=== PATIENT | male | born 1925 | race Caucasian/White ===

== ENCOUNTER 2017-01-04 16:13 | Emergency (ER) | payer MEDICARE, OTHER ==
[~2017-01-04] VITALS: Ht 162.6 cm; Wt 71.6 kg
[~2017-01-04 16:13] MED LIST: ACET-62 PO; BETA1TAB20 PO; CALC1TAB87 PO; DABI75CA3 PO; DRON400T2 PO; FINA5TAB42 PO; ISOS30TA46 PO; MAGN400T25 PO; MELA5TAB14 PO; MULT-795 PO; RANI-45 PO; SIMV10TA6 PO; TERA5CAP PO
[2017-01-04 16:15] VITALS: Ht 162.6 cm; Wt 71.6 kg
--- OUTSIDE RECORDS SUMMARY | 2017-01-04 16:17 | XMS REPORT | Continuity of Care Document ---
Author Author [facility] Organization [facility] Address Unknown Phone Unavailable Support Name Relationship Address Phone HAILYROGERIO YI Caregiver [address] [place] [address] CATALINO CASTELLANOS MD Caregiver [address] [place] [phone] ALLISON MCCORD MD Caregiver [address] [place] [phone] TWIN LONDON MD Caregiver [address] [place] [phone] SOTERO BROWN Next Of Kin [address] [place] [address] Insurance Providers Payer Name Policy Number Subscriber Name Relationship Medicare [id number] Meliton Brown Self Care Rr Medicare Supplement [id number] Meliton Brown Self Advance Directives Directive Response Recorded Date/Time Advanced Directives Type Unable to Obtain 07/04/14 1:23pm Ordered Resuscitation Status Full Code, unverified 07/04/14 12:49pm Resuscitation Documents on File No 07/04/14 2:19pm Chief Complaint and Reason for Visit Chief Complaint FEVER,SEPSIS,DEHYDRATION Reason for Visit Acute febrile illness Sepsis History of bacteremia History of dental abscess Poor dentition Dehydration Encephalopathy in sepsis Afib Fever Leucocytosis Dehydration Cellulitis Problems Medical Problems Problem Onset Date Status RAPID HEART RATE-RESOLVED Unknown Active Dizziness Unknown Active Fall Unknown Active Elbow contusion Unknown Active Laceration of right hand Unknown Active Fall Unknown Active Atypical chest pain Unknown Active Acute febrile illness Unknown Active Sepsis Unknown Active History of bacteremia Unknown Resolved History of dental abscess Unknown Active Poor dentition Unknown Active Dehydration Unknown Resolved Encephalopathy in sepsis Unknown Active Afib Unknown Active Fever Unknown Active Leucocytosis Unknown Active Dehydration Unknown Active Cellulitis Unknown Active Medications Medication Dose Route Sig Days/Qty Instructions Order Date Discontinued Date Status Nadolol 1 Tab PO DAILY 11/04/08 02/15/10 Discontinued Terazosin Hcl 1 Tab PO DAILY 02/15/10 Active Potassium Chloride 2 Tab PO TWICE A DAY 02/15/10 09/11/11 Discontinued Fluvastatin Sodium 1 Tab PO DAILY 11/04/08 02/15/10 Discontinued Ranitidine Hcl 150 Mg PO TWICE A DAY 02/15/10 Active Aspirin 81 Mg PO DAILY 04/10/09 02/15/10 Discontinued [Centrum Silver] 1 PO DAILY 02/15/10 03/31/11 Discontinued Pantoprazole Sodium DAILY 02/15/10 03/31/11 Discontinued Hydrochlorothiazide 25 Mg PO DAILY 02/15/10 01/21/12 Discontinued Fluvastatin Sodium 80 Mg PO DAILY 02/15/10 03/31/11 Discontinued Finasteride 5 Mg PO DAILY 02/15/10 05/18/11 Discontinued Simvastatin 10 Mg PO BEDTIME 03/31/11 Active Lisinopril 10 Mg PO DAILY 05/18/11 Active Warfarin Sodium 5 Mg PO DAILY 05/18/11 09/11/11 Discontinued Diltiazem Hcl 180 Mg PO DAILY 05/18/11 Active Potassium Chloride 50 Meq PO DAILY 09/11/11 01/21/12 Discontinued Warfarin Sodium 2.5 Mg PO M, W, F 09/11/11 09/11/11 Discontinued [pradaxa] 75 Mg TWICE A DAY 09/11/11 07/08/14 Discontinued Aspirin 81 Mg PO DAILY 01/21/12 05/09/13 Discontinued Multivitamins W-Minerals/Lut 1 Tab PO DAILY 01/21/12 Active Isosorbide Mononitrate 30 Mg PO DAILY 05/09/13 Active Magnesium Oxide 400 Mg PO DAILY 05/09/13 Active Calcium Carbonate/Vitamin D3 1 Udtab PO DAILY 05/09/13 Active Dabigatran Etexilate Mesylate 1 Cap PO TAKE WITH FULL GLASS OF WATER. 07/04/14 Active Saw [place] Fruit TWICE A DAY 07/04/14 Active Amoxicillin/Potassium Clav 1 Tab PO TWICE A DAY 7 Days 07/08/14 Active Social History Social History Problem Response Recorded Date/Time Smoking Status Unknown if ever smoked 01/13/2014 1:00pm Hx Substance Use No 07/04/2014 1:25pm Hx Alcohol Use No 07/04/2014 1:25pm Has the pt used tobacco in the last 12 months No 07/04/2014 2:17pm Query Response Start Date Stop Date Smoking Status Former smoker Hospital Discharge Instructions Instructions: Care Instructions: Reason for Hospitalization: fever I was in the hospital because (patient own words): I AM SICK Discharge Diet: as tolerated Discharge Activity: It is OK to perform your activities of daily living, but you should stay off your leg until the redness is gone. Follow Up Appointments: Please make an appt with Dr Mccord in one week Patient Instructions: should your symptoms return you could contact Dr Mccord through the office or return to the ED for emergent evaluation Condition at time of discharge: Good N/A Notify Physician If: As above. Condition at time of discharge: Good decline Condition at time of discharge: Good OR RETURN TO ED FOR LIGHTHEADEDNESS, WEAKNESS, AND MUSCLE/JOINT ACHES SHOULD OCCUR. Condition at time of discharge: Good Plan of Care Discharge Date 07/08/14 5:17pm Disposition 01 DISCHARGED HOME, SELF-CARE Prescriptions See Medications Section Functional Status Query Response Date Recorded Physical Hygiene Self July 08, 2014 4:16pm Disabilities Hearing July 08, 2014 4:16pm Devices Used None July 08, 2014 4:16pm Dressing Self July 08, 2014 4:16pm Ambulation Self July 08, 2014 4:16pm Diet Self July 08, 2014 4:16pm Mental Status Alert Oriented July 08, 2014 4:16pm Disabilities Hearing July 08, 2014 4:16pm Devices Used None July 08, 2014 4:16pm Physical Hygiene Self July 08, 2014 4:16pm Dressing Self July 08, 2014 4:16pm Ambulation Self July 08, 2014 4:16pm Diet Self July 08, 2014 4:16pm Allergies, Adverse Reactions, Alerts Allergen Type Severity Reaction Status Last Updated No Known Drug Allergies Allergy Unknown Active 07/04/14 Immunizations Name Given Type Hx Influenza Vaccination No Historical Hx Pneumococcal Vaccination Y found in EMR that pt. had vaccine in 2009 Historical Hx Influenza Vaccination No Historical Hx Tetanus Diptheria Y 2010 OR 2011 Historical Vital Signs Acute Vital Signs Vital Response Date/Time Temperature (Fahrenheit) 95.7 deg F (96.8 - 99.1) Temperature (Calculated Celsius) 35.98327 degrees C (36.0 - 37.3) Temperature Source Oral Pulse Rate (adult) 63 bpm (60 - 100) Respiratory Rate 16 breaths/min (10 - 20) O2 Sat by Pulse Oximetry 96 % (90 - 100) Oxygen Delivery Method Room Air Blood Pressure 146/71 mm Hg Blood Pressure Source Automatic Cuff Height 5 ft 6 in Weight 167 lb Body Mass Index 27.0 kg/m^2 Results Test Source Date Result Interp. Ref. Range Comments Activated Partial Thromboplast Time July 18, 2013 12:13pm 53.9 SEC H 24-36 Alanine Aminotransferase (ALT/SGPT) July 04, 2014 10:52am 28 U/L N 21 -72 Albumin July 04, 2014 10:52am 4.0 G/DL N 3.5-5.0 Albumin/Globulin Ratio July 04, 2014 10:52am 1.2 RATIO N 1.1-2.2 Alkaline Phosphatase July 04, 2014 10:52am 61 U/L N 38-126 Amylase Level February 15, 2010 3:00pm 63 U/L N 30-110 Anion Gap July 08, 2014 5:08am 7 MEQ/L N 5-15 Anti-Mitochondrial Antibody February 15, 2010 3:00pm Ref lab rpt scanned - --- 02/20/10 0911 ---ANTIMIT previously reported as: SENT OUT Aspartate Amino Transf (AST/SGOT) July 04, 2014 10:52am 31 U/L N 17- 59 B-Type Natriuretic Peptide May 18, 2011 12:35am 42 PG/ML N 15-100 BUN/Creatinine Ratio July 08, 2014 5:08am 11 RATIO N 6-26 Band Neutrophils # July 04, 2014 10:51am 3.1 T/MM3 - Band Neutrophils % July 04, 2014 10:51am 13.0 % H 0-6 Basophils # (Auto) July 08, 2014 5:08am 0.1 T/MM3 N 0-0.2 Basophils # (Manual) February 17, 2010 4:44am 0.0 T/MM3 N 0-0.2 Basophils % (Manual) February 17, 2010 4:44am 0.0 % N 0-2 Basophils (%) (Auto) July 08, 2014 5:08am 0.6 % N 0-2 Blood Urea Nitrogen July 08, 2014 5:08am 12.0 MG/DL N 9-20 Calcium Level July 08, 2014 5:08am 8.8 MG/DL N 8.4-10.2 Calculated Osmolality July 08, 2014 5:08am 264 MOSM/KG N 261-280 Carbon Dioxide Level July 08, 2014 5:08am 27 MEQ/L N 22-30 Ceruloplasmin February 15, 2010 3:00pm Ref lab rpt scanned - --- 0911 ---CERU previously reported as: SENT OUT Chemistry Specimen Hemolysis July 08, 2014 5:08am < 15 0-25 0-25: No Hemolysis.26-70: Slight Hemolysis - can falsely elevate K and Urine Protein. 71-285: Moderate Hemolysis - can falsely elevate K, Troponin I, CA 19-9, PTH, CSF GLucose, and Urine Protein, and can falsely decrease Phenytoin. 286-999: Gross Hemolysis - can falsely elevate K, Troponin I, CA 19-9, PTH, CSF Glucose, and Urine Protine, and can falsely decrease Phenytoin. Recommend specimen recollection. Chloride Level July 08, 2014 5:08am 103 MEQ/L N 98-107 Cholesterol Level February 16, 2010 5:00am 123 MG/DL L 132-199 Cholesterol/HDL Ratio February 16, 2010 5:00am 3.2 RATIO N 0-5.0 Conjugated Bilirubin March 31, 2011 5:15am 0.00 MG/DL N 0.00-0.30 Creatine Kinase MB May 18, 2011 12:35am 0.4 NG/ML N 0-3.4 Creatinine July 08, 2014 5:08am 1.1 MG/DL N 0.8-1.5 Eosinophils # (Auto) July 08, 2014 5:08am 0.3 T/MM3 N 0-0.5 Eosinophils # (Manual) February 17, 2010 4:44am 0.0 T/MM3 N 0-0.5 Eosinophils % (Manual) February 17, 2010 4:44am 0.0 % N 0-4 Eosinophils (%) (Auto) July 08, 2014 5:08am 3.5 % N 0-4 Ferritin February 15, 2010 3:00pm 298 NG/ML N 18-464 Free Thyroxine March 31, 2011 5:15am 1.31 NG/DL N 0.78-2.19 Globulin July 04, 2014 10:52am 3.4 G/DL N 2.4-3.6 Glomerular Filtration Rate Calc July 08, 2014 5:08am 63 - Glucometer August 20, 2013 10:24am 151 mg/dL H 75-110 Glucose Level July 08, 2014 5:08am 99 MG/DL N 75-110 HDL Cholesterol Direct April 09, 2012 11:53am 51 MG/DL N 40-60 Hematocrit July 08, 2014 5:08am 32.8 % L 41-53 Hemoglobin July 08, 2014 5:08am 10.7 GM/DL L 13.5-17.5 Hepatitis A IgM Antibody February 15, 2010 3:00pm Negative - Hepatitis B Core IgM Antibody February 15, 2010 3:00pm Negative - Hepatitis B Surface Antigen February 15, 2010 3:00pm Negative - Hepatitis C Antibody February 15, 2010 3:00pm Negative - Icterus Index July 08, 2014 5:08am < 2 0-7 Immature Granulocyte # (Auto) July 08, 2014 5:08am 0.05 T/MM3 H 0.00- 0.03 Immature Granulocyte % (Auto) July 08, 2014 5:08am 0.6 % H 0.0-0.5 Influenza Type A Antigen July 04, 2014 10:00am Negative - Negative for Flu A protein antigen. Assay sensitivity is90%. Influenza Type B Antigen July 04, 2014 10:00am Negative - Negative for Flu B protein antigen. Assay sensitivity is90%. LDL Cholesterol Direct April 09, 2012 11:53am 34.56 MG/DL L 100-129 LDL Cholesterol, Calculated February 16, 2010 5:00am 72.2 N 66-159 Lab Scanned Report April 09, 2012 5:18pm LAB TEST FORM REQUEST [id number] - Lipase February 15, 2010 3:00pm 65 U/L N 23-300 Lymphocytes # (Auto) July 08, 2014 5:08am 1.5 T/MM3 N 1-4.8 Lymphocytes # (Manual) July 05, 2014 5:12am 0.9 T/MM3 L 1-4.8 Lymphocytes % (Manual) July 05, 2014 5:12am 6.0 % L 23-45 Lymphocytes (%) (Auto) July 08, 2014 5:08am 18.2 % L 23-45 Magnesium Level July 05, 2014 5:12am 1.8 MG/DL N 1.6-2.3 Mean Corpuscular Hemoglobin July 08, 2014 5:08am 28.2 UUG N 26-34 Mean Corpuscular Hemoglobin Concent July 08, 2014 5:08am 32.6 GM/DL N 31-37 Mean Corpuscular Volume July 08, 2014 5:08am 86.3 UM3 N 80-100 Mean Platelet Volume July 08, 2014 5:08am 10.3 UM3 N 9.4-12.4 Monocytes # (Auto) July 08, 2014 5:08am 1.0 T/MM3 H 0-0.8 Monocytes # (Manual) July 05, 2014 5:12am 1.4 T/MM3 H 0-0.8 Monocytes % (Manual) July 05, 2014 5:12am 9.0 % N 0-9.0 Monocytes (%) (Auto) July 08, 2014 5:08am 12.5 % H 0-9.0 PD-Skz-P-Type Natriuretic Peptide July 07, 2014 5:31am 1590 PG/ML H 0 -175 Rule in cut points: <50 years old=450; 50-75 years old=900; >75 years old=1800; When utilizing ProBNP rule-in cut points, adjustment for impaired renal function is typically not required. Neutrophils # (Auto) July 08, 2014 5:08am 5.2 T/MM3 N 1.8-7.7 Neutrophils # (Manual) July 05, 2014 5:12am 13.3 T/MM3 H 1.8-7.7 Neutrophils % (Manual) July 05, 2014 5:12am 85.0 % H 33-66 Neutrophils (%) (Auto) July 08, 2014 5:08am 64.6 % N 33-66 Platelet Count July 08, 2014 5:08am 199 T/MM3 N 130-400 Potassium Level July 08, 2014 5:08am 4.1 MEQ/L N 3.6-5 Prealbumin May 09, 2013 4:11am 19.0 MG/DL N 17.6-36.0 Procalcitonin July 05, 2014 5:12am 0.27 NG/ML - PCT </=0.5 ng/mL - sepsis not likely;PCT >0.5 and </=2 ng/mL - sepsis possible; PCT >2 ng/mL - sepsis likely; PCT >/=10 ng/mL - systemic inflammatory response - sepsis or septic shock highly indicated. Prothromb Time International Ratio August 20, 2013 9:45am 1.11 H 0.86- 1.10 THERAPUTIC RANGE=2.00-3.00 FOR ANTI-THROMBOSIS THERAPUTIC RANGE=2.50- 3.50 FOR IMPLANTED VALVE RDW Standard Deviation July 08, 2014 5:08am 42.6 FL N 36.9-50.2 Red Blood Count July 08, 2014 5:08am 3.80 M/MM3 L 4.50-5.90 Sodium Level July 08, 2014 5:08am 137 MEQ/L N 134-144 Tests Not Done April 10, 2009 7:00pm Not done - Has specimen been collected/obtained? Y Thyroid Stimulating Hormone (TSH) May 09, 2013 4:11am 0.56 MIU/L N 0.47-4.68 COMMENT blood in lab Total Bilirubin July 04, 2014 10:52am 0.90 MG/DL N 0.20-1.30 Total Creatine Kinase April 09, 2012 11:53am 59 U/L N 55-170 Total Protein July 04, 2014 10:52am 7.4 G/DL N 6.3-8.2 Triglycerides Level April 09, 2012 11:53am 60 MG/DL N 40-160 Troponin I July 04, 2014 10:52am 0.019 ng/ml N 0-0.12 Turbidity July 08, 2014 5:08am < 20 0-20 Unconjugated Bilirubin March 31, 2011 5:15am 0.40 MG/DL N 0.00-1.10 Urinalysis Comment August 20, 2013 11:15am Microscopic not ind. - Has specimen been collected/obtained? Y Urine Bacteria July 04, 2014 11:00am None seen - Has specimen been collected/obtained? Y Urine Bilirubin July 04, 2014 11:00am Negative - Has specimen been collected/obtained? Y Urine Blood July 04, 2014 11:00am 1+ H - Has specimen been collected /obtained? Y Urine Collection Type July 04, 2014 11:00am Cleancatch-midstream - Has specimen been collected/obtained? Y Urine Color July 04, 2014 11:00am Yellow - Has specimen been collected/obtained? Y Urine Glucose (UA) July 04, 2014 11:00am Negative - Has specimen been collected/obtained? Y Urine Ketones July 04, 2014 11:00am 1+ H - Has specimen been collected/obtained? Y Urine Leukocyte Esterase July 04, 2014 11:00am Negative - Has specimen been collected/obtained? Y Urine Microscopic Not Indicated May 18, 2011 1:30am Not indicated - Has specimen been collected/obtained? Y Urine Mucus July 04, 2014 11:00am Present - Has specimen been collected/obtained? Y Urine Nitrite July 04, 2014 11:00am Negative - Has specimen been collected/obtained? Y Urine Protein July 04, 2014 11:00am Negative - Has specimen been collected/obtained? Y Urine RBC July 04, 2014 11:00am 3-5 /HPF H - Has specimen been collected/obtained? Y Urine Renal Epithelial Cells July 04, 2014 11:00am None seen /HPF - Has specimen been collected/obtained? Y Urine Specific [place] July 04, 2014 11:00am 1.020 - Has specimen been collected/obtained? Y Urine Squamous Epithelial Cells July 04, 2014 11:00am 5-10 - Has specimen been collected/obtained? Y Urine Turbidity July 04, 2014 11:00am Clear - Has specimen been collected/obtained? Y Urine Urobilinogen July 04, 2014 11:00am 0.2 EU/DL - Has specimen been collected/obtained? Y Urine WBC July 04, 2014 11:00am None seen /HPF - Has specimen been collected/obtained? Y Urine pH July 04, 2014 11:00am 6.0 - Has specimen been collected/ obtained? Y VLDL Cholesterol February 16, 2010 5:00am 11.8 MG/DL N 0-28 Venous Blood Lactate July 04, 2014 10:52am 1.3 MMOL/L N 0.6-2.2 Vitamin B12 Level May 09, 2013 4:11am 455 PG/ML N 239-931 White Blood Count July 08, 2014 5:08am 8.0 T/MM3 N 4.5-11.0 Blood Culture Blood July 04, 2014 10:52am NO GROWTH AFTER 4 DAYS Name: MELITON BROWN Unit #: [id number] : 1925 Sex: M Loc / Svc: MED DOS: 07/04/14 Signed Report #: [id number] DIAGNOSTIC IMAGING REPORT TYPE OF EXAM: US VENOUS DUPLEX, LOWER EXT LT Dictated By: BENNIE ALVAREZ MD INDICATION: ITS.REASON: swelling, erythema US VENOUS DUPLEX, LOWER EXT LT: Comparison: None Findings: There is no evidence for acute deep venous thrombosis in the left thigh. Specifically, serial graded compression was performed from the inguinal ligament to the popliteal bifurcation, on the left thigh, demonstrating appropriate compressibility of the deep venous system. In addition, color and pulsed Doppler demonstrate appropriate spontaneous flow, variation with respiration, and augmentation with calf compression. At the ankle, normal flow is identified in the posterior tibial veins; these vessels are also normal in caliber. Impression: No evidence of acute DVT in the left lower limb. . Procedures Procedure Status Date Provider(s) THER/PROPH/DIAG IV INF INIT completed 06/01/14 Encounters Encounter Location Date/Time Discharged Inpatient [facility] 07/04/14 12:49pm Departed Emergency Room [facility] 06/01/14 10:53pm Recent Diagnosis Acute febrile illness Sepsis History of bacteremia History of dental abscess Poor dentition Dehydration Encephalopathy in sepsis Afib Fever Leucocytosis Dehydration Cellulitis
--- OUTSIDE RECORDS SUMMARY | 2017-01-04 16:17 | XMS REPORT | Continuity of Care Document ---
Author Author [facility] Organization [facility] Address Unknown Phone Unavailable Support Name Relationship Address Phone BRIAN BELCHER MD Caregiver [facility] [address] [place] [address] Unavailable ALLISON MURDOCK MD Caregiver [address] [place] [address] [place] [phone] SOTERO BROWN Next Of Kin [address] [place] [address] Insurance Providers Payer Name Policy Number Subscriber Name Relationship Medicare [id number] Meliton Brown 18 Self Care Rr Medicare Supplement [id number] Meliton Brown 18 Self Problems Medical Problems Problem Onset Date Status RAPID HEART RATE-RESOLVED Unknown Active Dizziness Unknown Active Fall Unknown Active Elbow contusion Unknown Active Laceration of right hand Unknown Active Fall Unknown Active Atypical chest pain Unknown Active Medications Medication Dose Route Sig [...] PO M, W, F 09/11/11 09/11/11 Discontinued Finasteride 5 Mg PO BEDTIME 09/11/11 Active [pradaxa] 75 Mg TWICE A DAY 09/11/11 Active Aspirin 81 Mg PO DAILY 01/21/12 05/09/13 Discontinued Multivitamins W-Minerals/Lut 1 Tab PO DAILY 01/21/12 Active Isosorbide Mononitrate 30 Mg PO DAILY 05/09/13 Active Magnesium Oxide 400 Mg PO DAILY 05/09/13 Active Calcium Carbonate/Vitamin D3 1 Udtab PO DAILY 05/09/13 Active Social History Social History Problem Response Recorded Date/Time Smoking Status Unknown if ever smoked 01/13/2014 1:00pm Hx Substance Use No 06/01/2014 10:53pm Hx Alcohol Use No 06/01/2014 10:53pm Has the pt used tobacco in the last 12 months No 05/09/2013 7:03am Query Response Start Date Stop Date Smoking Status Former smoker Hospital Discharge Instructions No hospital discharge instructions. Plan of Care No plan of care. Functional Status Query Response Date Recorded Physical Hygiene Self June 01, 2014 10:53pm Disabilities Hearing June 01, 2014 10:53pm Devices Used None June 01, 2014 10:53pm Dressing Self June 01, 2014 10:53pm Ambulation Self June 01, 2014 10:53pm Diet Self June 01, 2014 10:53pm Mental Status Alert Oriented June 01, 2014 10:53pm Disabilities Hearing June 01, 2014 10:53pm Devices Used None June 01, 2014 10:53pm Physical Hygiene Self June 01, 2014 10:53pm Dressing Self June 01, 2014 10:53pm Ambulation Self June 01, 2014 10:53pm Diet Self June 01, 2014 10:53pm Allergies, Adverse Reactions, Alerts Allergen Type Severity Reaction Status Last Updated No Known Drug Allergies Allergy Unknown Active 06/01/14 Immunizations Name Given Type Hx Influenza Vaccination Y fall 2011 Historical Hx Pneumococcal Vaccination Y found in EMR that pt. had vaccine in 2009 Historical Hx Influenza Vaccination Y fall 2011 Historical Hx Tetanus Diptheria Y 2010 OR 2011 Historical Vital Signs Acute Vital Signs Vital Response Date/Time Temperature (Fahrenheit) 97.4 deg F (96.8 - 99.1) Temperature (Calculated Celsius) 36.32699 degrees C (36.0 - 37.3) Pulse Rate (adult) 59 bpm (60 - 100) Respiratory Rate 16 breaths/min (10 - 20) O2 Sat by Pulse Oximetry 94 % (90 - 100) Blood Pressure 151/70 mm Hg Height 5 ft 6 in Weight 169 lb Body Mass Index 27.0 kg/m^2 Results Test Source Date Result Interp. Ref. Range Comments Activated Partial Thromboplast Time July 18, 2013 12:13pm 53.9 SEC H 24-36 Alanine Aminotransferase (ALT/SGPT) August 20, 2013 9:45am 28 U/L N 21 -72 Albumin August 20, 2013 9:45am 3.7 G/DL N 3.5-5.0 Albumin/Globulin Ratio August 20, 2013 9:45am 1.2 RATIO N 1.1-2.2 Alkaline Phosphatase August 20, 2013 9:45am 49 U/L N 38-126 Amylase Level February 15, 2010 3:00pm 63 U/L N 30-110 Anion Gap August 20, 2013 9:45am 15 MEQ/L N 5-15 Anti-Mitochondrial Antibody February 15, 2010 3:00pm Ref lab rpt scanned - --- 02/20/10 0911 ---ANTIMIT previously reported as: SENT OUT Aspartate Amino Transf (AST/SGOT) August 20, 2013 9:45am 28 U/L N 17- 59 B-Type Natriuretic Peptide May 18, 2011 12:35am 42 PG/ML N 15-100 BUN/Creatinine Ratio August 20, 2013 9:45am 19 RATIO N 6-26 Band Neutrophils # May 10, 2013 5:13am 0.6 T/MM3 - Band Neutrophils % May 10, 2013 5:13am 4.0 % N 0-6 Basophils # (Auto) August 20, 2013 9:45am 0.1 T/MM3 N 0-0.2 Basophils # (Manual) February 17, 2010 4:44am 0.0 T/MM3 N 0-0.2 Basophils % (Manual) February 17, 2010 4:44am 0.0 % N 0-2 Basophils (%) (Auto) August 20, 2013 9:45am 0.7 % N 0-2 Blood Urea Nitrogen August 20, 2013 9:45am 23.0 MG/DL H 9-20 Calcium Level August 20, 2013 9:45am 9.2 MG/DL N 8.4-10.2 Calculated Osmolality August 20, 2013 9:45am 284 MOSM/KG H 261-280 Carbon Dioxide Level August 20, 2013 9:45am 20 MEQ/L L 22-30 Ceruloplasmin February 15, 2010 3:00pm Ref lab rpt scanned - --- 0911 ---CERU previously reported as: SENT OUT Chloride Level August 20, 2013 9:45am 109 MEQ/L H 98-107 Cholesterol Level February 16, 2010 5:00am 123 MG/DL L 132-199 Cholesterol/HDL Ratio February 16, 2010 5:00am 3.2 RATIO N 0-5.0 Conjugated Bilirubin March 31, 2011 5:15am 0.00 MG/DL N 0.00-0.30 Creatine Kinase MB May 18, 2011 12:35am 0.4 NG/ML N 0-3.4 Creatinine August 20, 2013 9:45am 1.2 MG/DL N 0.8-1.5 Eosinophils # (Auto) August 20, 2013 9:45am 0.2 T/MM3 N 0-0.5 Eosinophils # (Manual) February 17, 2010 4:44am 0.0 T/MM3 N 0-0.5 Eosinophils % (Manual) February 17, 2010 4:44am 0.0 % N 0-4 Eosinophils (%) (Auto) August 20, 2013 9:45am 1.7 % N 0-4 Ferritin February 15, 2010 3:00pm 298 NG/ML N 18-464 Free Thyroxine March 31, 2011 5:15am 1.31 NG/DL N 0.78-2.19 Globulin August 20, 2013 9:45am 3.1 G/DL N 2.4-3.6 Glucose Level August 20, 2013 9:45am 148 MG/DL H 75-110 Hematocrit August 20, 2013 9:45am 36.0 % L 41-53 Hemoglobin August 20, 2013 9:45am 11.6 GM/DL L 13.5-17.5 Hepatitis A IgM Antibody February 15, 2010 3:00pm Negative - Hepatitis B Core IgM Antibody February 15, 2010 3:00pm Negative - Hepatitis B Surface Antigen February 15, 2010 3:00pm Negative - Hepatitis C Antibody February 15, 2010 3:00pm Negative - LDL Cholesterol Direct April 09, 2012 11:53am 34.56 MG/DL L 100-129 LDL Cholesterol, Calculated February 16, 2010 5:00am 72.2 N 66-159 Lipase February 15, 2010 3:00pm 65 U/L N 23-300 Lymphocytes # (Auto) August 20, 2013 9:45am 3.1 T/MM3 N 1-4.8 Lymphocytes # (Manual) May 10, 2013 5:13am 0.4 T/MM3 L 1-4.8 Lymphocytes % (Manual) May 10, 2013 5:13am 3.0 % L 23-45 Lymphocytes (%) (Auto) August 20, 2013 9:45am 33.4 % N 23-45 Mean Corpuscular Hemoglobin August 20, 2013 9:45am 28.4 UUG N 26-34 Mean Corpuscular Hemoglobin Concent August 20, 2013 9:45am 32.2 GM/DL N 31-37 Mean Corpuscular Volume August 20, 2013 9:45am 88.0 UM3 N 80-100 Mean Platelet Volume August 20, 2013 9:45am 11.0 UM3 N 9.4-12.4 Monocytes # (Auto) August 20, 2013 9:45am 0.8 T/MM3 N 0-0.8 Monocytes # (Manual) February 17, 2010 4:44am 0.2 T/MM3 N 0-0.8 Monocytes % (Manual) February 17, 2010 4:44am 1.0 % N 0-9.0 Monocytes (%) (Auto) August 20, 2013 9:45am 8.6 % N 0-9.0 Neutrophils # (Auto) August 20, 2013 9:45am 5.1 T/MM3 N 1.8-7.7 Neutrophils # (Manual) May 10, 2013 5:13am 13.4 T/MM3 H 1.8-7.7 Neutrophils % (Manual) May 10, 2013 5:13am 93.0 % H 33-66 Neutrophils (%) (Auto) August 20, 2013 9:45am 55.3 % N 33-66 Platelet Count August 20, 2013 9:45am 181 T/MM3 N 130-400 Potassium Level August 20, 2013 9:45am 3.6 MEQ/L N 3.6-5 Prealbumin May 09, 2013 4:11am 19.0 MG/DL N 17.6-36.0 Prothromb Time International Ratio August 20, 2013 9:45am 1.11 H 0.86- 1.10 THERAPUTIC RANGE=2.00-3.00 FOR ANTI-THROMBOSIS THERAPUTIC RANGE=2.50- 3.50 FOR IMPLANTED VALVE RDW Standard Deviation August 20, 2013 9:45am 45.9 FL N 36.9-50.2 Red Blood Count August 20, 2013 9:45am 4.09 M/MM3 L 4.50-5.90 Sodium Level August 20, 2013 9:45am 144 MEQ/L N 134-144 Tests Not Done April 10, 2009 7:00pm Not done - Has specimen been collected/obtained? Y Thyroid Stimulating Hormone (TSH) May 09, 2013 4:11am 0.56 MIU/L N 0.47-4.68 COMMENT blood in lab Total Bilirubin August 20, 2013 9:45am 0.50 MG/DL N 0.20-1.30 Total Creatine Kinase April 09, 2012 11:53am 59 U/L N 55-170 Total Protein August 20, 2013 9:45am 6.8 G/DL N 6.3-8.2 Triglycerides Level April 09, 2012 11:53am 60 MG/DL N 40-160 Troponin I August 20, 2013 9:45am < 0.012 ng/ml 0-0.12 Unconjugated Bilirubin March 31, 2011 5:15am 0.40 MG/DL N 0.00-1.10 Urine Bacteria May 09, 2013 4:30am None seen - Has specimen been collected/obtained? Y Urine Bilirubin August 20, 2013 11:15am Negative - Has specimen been collected/obtained? Y Urine Blood August 20, 2013 11:15am Negative - Has specimen been collected/obtained? Y Urine Collection Type August 20, 2013 11:15am Voided-not cc-midstr - Has specimen been collected/obtained? Y Urine Color August 20, 2013 11:15am Yellow - Has specimen been collected/obtained? Y Urine Glucose (UA) August 20, 2013 11:15am Negative - Has specimen been collected/obtained? Y Urine Ketones August 20, 2013 11:15am Negative - Has specimen been collected/obtained? Y Urine Leukocyte Esterase August 20, 2013 11:15am Negative - Has specimen been collected/obtained? Y Urine Nitrite August 20, 2013 11:15am Negative - Has specimen been collected/obtained? Y Urine Protein August 20, 2013 11:15am Negative - Has specimen been collected/obtained? Y Urine RBC May 09, 2013 4:30am 1-3 /HPF - Has specimen been collected/obtained? Y Urine Specific [place] August 20, 2013 11:15am 1.025 - Has specimen been collected/obtained? Y Urine Squamous Epithelial Cells May 09, 2013 4:30am None seen - Has specimen been collected/obtained? Y Urine Turbidity August 20, 2013 11:15am Clear - Has specimen been collected/obtained? Y Urine Urobilinogen August 20, 2013 11:15am Normal EU/DL - Has specimen been collected/obtained? Y Urine WBC May 09, 2013 4:30am 0-1 /HPF - Has specimen been collected/obtained? Y Urine pH August 20, 2013 11:15am 5.0 - Has specimen been collected/ obtained? Y VLDL Cholesterol February 16, 2010 5:00am 11.8 MG/DL N 0-28 Vitamin B12 Level May 09, 2013 4:11am 455 PG/ML N 239-931 White Blood Count August 20, 2013 9:45am 9.2 T/MM3 N 4.5-11.0 Urinalysis Comment August 20, 2013 11:15am Microscopic not ind. - Has specimen been collected/obtained? Y Glucometer August 20, 2013 10:24am 151 mg/dL H 75-110 Lab Scanned Report April 09, 2012 5:18pm LAB TEST FORM REQUEST [id number] - HDL Cholesterol Direct April 09, 2012 11:53am 51 MG/DL N 40-60 Glomerular Filtration Rate Calc August 20, 2013 9:45am 57 - Immature Granulocyte # (Auto) August 20, 2013 9:45am 0.03 T/MM3 N 0.00 -0.03 Immature Granulocyte % (Auto) August 20, 2013 9:45am 0.3 % N 0.0-0.5 Venous Blood Lactate May 09, 2013 4:11am 1.7 MMOL/L N 0.6-2.2 CE-Wmw-P-Type Natriuretic Peptide July 18, 2013 12:13pm 244 PG/ML H 0 -175 Rule in cut points: <50 years old=450; 50-75 years old=900; >75 years old=1800; When utilizing ProBNP rule-in cut points, adjustment for impaired renal function is typically not required. Urine Microscopic Not Indicated May 18, 2011 1:30am Not indicated - Has specimen been collected/obtained? Y Blood Culture Blood May 09, 2013 4:11am NO GROWTH AFTER 5 DAYS Procedures No known history of procedures. Encounters Encounter Location Date/Time Departed Emergency Room [facility] 06/01/14 10:53pm Recent Diagnosis
--- OUTSIDE RECORDS SUMMARY | 2017-01-04 16:17 | XMS REPORT | Continuity of Care Document ---
Author Author Werner [facility] LIVE Organization [facility] Address Unknown Phone Unavailable Support Name Relationship Address Phone LOUIS CHOUDHARY MD Caregiver [address] [place] [phone] ALLISON MURDOCK MD Caregiver [address] [place] [phone] STOERO BROWN Next Of Kin [address] [place] [address] Insurance Providers Payer Name Policy Number Subscriber Name Relationship Medicare [id number] Meliton Brown 18 Self Care Rr Medicare Supplement [id number] Meliton Brown Self Advance Directives Directive Response Recorded Date/Time Ordered Resuscitation Status Full Code 12/22/14 12:45pm Problems Medical Problems Problem Onset Date Status [...] Active Dehydration Unknown Active Cellulitis Unknown Active GERD (gastroesophageal reflux disease) Unknown Active Hyperlipemia Unknown Active Hypertension Unknown Active Pulmonary hypertension Unknown Active Carpal tunnel syndrome of left wrist Unknown Active Medications Medication Dose Route Sig [...] 5 Mg PO DAILY 05/18/11 09/11/11 Discontinued Potassium Chloride 50 Meq PO DAILY 09/11/11 01/21/12 Discontinued Warfarin Sodium 2.5 Mg PO M, W, F 09/11/11 09/11/11 Discontinued [pradaxa] 75 Mg TWICE A DAY 09/11/11 07/08/14 Discontinued Aspirin 81 Mg PO DAILY 01/21/12 05/09/13 Discontinued Multivitamins W-Minerals/Lut 1 Tab PO DAILY 01/21/12 Active Isosorbide Mononitrate 30 Mg PO DAILY 05/09/13 Active Magnesium Oxide 400 Mg PO DAILY 05/09/13 Active Dabigatran Etexilate Mesylate 1 Cap PO TWICE A DAY TAKE WITH FULL GLASS OF WATER. 07/04/14 Active Finasteride 5 Mg PO DAILY 11/15/14 Active Calcium Carbonate/Vitamin D3 1 Tab PO DAILY 11/15/14 Active Digoxin 1 Tab PO DAILY 12/21/14 Active Diltiazem HCl 180 Mg PO DAILY 12/23/14 Active Acetaminophen 1-2 Tab PO Every 8 Hours PRN PAIN 50 Qty 12/23/14 Active Social History Social History Problem Response Recorded Date/Time Chewing Tobacco Status No 11/15/2014 3:09pm Hx Substance Use No 11/15/2014 3:09pm Hx Alcohol Use No 11/15/2014 3:09pm Has the pt used tobacco in the last 12 months No 12/21/2014 4:24pm Tobacco Usage none 12/14/2014 10:07am Query Response Start Date Stop Date Smoking Status Unknown if ever smoked Hospital Discharge Instructions No hospital discharge instructions. Plan of Care No plan of care. Functional Status Query Response Date Recorded Physical Hygiene Self July 08, 2014 4:16pm Physical Hygiene Self July 08, 2014 4:16pm Allergies, Adverse Reactions, Alerts Allergen Type Severity Reaction Status Last Updated Hydrocodone Allergy Unknown Active 12/06/14 Immunizations Name Given Type Hx Influenza Vaccination Y JUL 2014 Historical Hx Pneumococcal Vaccination Y FALL 2012 Historical Hx Influenza Vaccination Y JUL 2014 Historical Hx Tetanus Diptheria Y 2010 OR 2011 Historical Vital Signs Acute Vital Signs Vital Response Date/Time Temperature (Fahrenheit) 97.6 deg F (96.8 - 99.1) Temperature (Calculated Celsius) 36.24836 degrees C (36.0 - 37.3) Temperature Source Temporal Pulse Rate (adult) 60 bpm (60 - 100) Respiratory Rate 16 breaths/min (10 - 20) O2 Sat by Pulse Oximetry 97 % (90 - 100) Oxygen Delivery Method Room Air Blood Pressure 150/67 mm Hg Blood Pressure Source Automatic Cuff Height 5 ft 6 in Weight 166 lb Body Mass Index 26.0 kg/m^2 Results Test Source Date Result Interp. Ref. Range Comments Activated Partial Thromboplast Time July 18, 2013 12:13pm 53.9 SEC H 24-36 Alanine Aminotransferase (ALT/SGPT) December 23, 2014 9:55am 20 U/L L 21- 72 COMMENT SCU PREOP WILL CALL Albumin December 23, 2014 9:55am 3.5 G/DL N 3.5-5.0 COMMENT SCU PREOP WILL CALL Albumin/Globulin Ratio December 23, 2014 9:55am 1.1 RATIO N 1.1-2.2 COMMENT SCU PREOP WILL CALL Alkaline Phosphatase December 23, 2014 9:55am 49 U/L N 38-126 COMMENT SCU PREOP WILL CALL Amylase Level February 15, 2010 3:00pm 63 U/L N 30-110 Anion Gap December 23, 2014 9:55am 11 MEQ/L N 5-15 COMMENT SCU PREOP WILL CALL Anti-Mitochondrial Antibody February 15, 2010 3:00pm Ref lab rpt scanned - --- 02/20/10 0911 ---ANTIMIT previously reported as: SENT OUT Aspartate Amino Transf (AST/SGOT) December 23, 2014 9:55am 24 U/L N 17-59 COMMENT SCU PREOP WILL CALL B-Type Natriuretic Peptide May 18, 2011 12:35am 42 PG/ML N 15-100 BUN/Creatinine Ratio December 23, 2014 9:55am 19 RATIO N 6-26 COMMENT SCU PREOP WILL CALL Band Neutrophils # July 04, 2014 10:51am 3.1 T/MM3 - Band Neutrophils % July 04, 2014 10:51am 13.0 % H 0-6 Basophils # (Auto) December 23, 2014 9:55am 0.1 T/MM3 N 0-0.2 COMMENT SCU PREOP WILL CALL Basophils # (Manual) February 17, 2010 4:44am 0.0 T/MM3 N 0-0.2 Basophils % (Manual) February 17, 2010 4:44am 0.0 % N 0-2 Basophils (%) (Auto) December 23, 2014 9:55am 0.8 % N 0-2 COMMENT SCU PREOP WILL CALL Blood Urea Nitrogen December 23, 2014 9:55am 23.0 MG/DL H 9-20 COMMENT SCU PREOP WILL CALL Calcium Level December 23, 2014 9:55am 8.9 MG/DL N 8.4-10.2 COMMENT SCU PREOP WILL CALL Calculated Osmolality December 23, 2014 9:55am 277 MOSM/KG N 261-280 COMMENT SCU PREOP WILL CALL Carbon Dioxide Level December 23, 2014 9:55am 23 MEQ/L N 22-30 COMMENT SCU PREOP WILL CALL Ceruloplasmin February 15, 2010 3:00pm Ref lab rpt scanned - --- 0911 ---CERU previously reported as: SENT OUT Chemistry Specimen Hemolysis December 23, 2014 9:55am < 15 0-25 0-25: No Hemolysis.26-70: Slight [...] decrease Phenytoin. Recommend specimen recollection. Chloride Level December 23, 2014 9:55am 108 MEQ/L H 98-107 COMMENT SCU PREOP WILL CALL Cholesterol Level February 16, 2010 5:00am 123 MG/DL L 132-199 Cholesterol/HDL Ratio February 16, 2010 5:00am 3.2 RATIO N 0-5.0 Conjugated Bilirubin March 31, 2011 5:15am 0.00 MG/DL N 0.00-0.30 Creatine Kinase MB May 18, 2011 12:35am 0.4 NG/ML N 0-3.4 Creatinine December 23, 2014 9:55am 1.2 MG/DL N 0.8-1.5 COMMENT SCU PREOP WILL CALL Eosinophils # (Auto) December 23, 2014 9:55am 0.2 T/MM3 N 0-0.5 COMMENT SCU PREOP WILL CALL Eosinophils # (Manual) February 17, 2010 4:44am 0.0 T/MM3 N 0-0.5 Eosinophils % (Manual) February 17, 2010 4:44am 0.0 % N 0-4 Eosinophils (%) (Auto) December 23, 2014 9:55am 2.7 % N 0-4 COMMENT SCU PREOP WILL CALL Ferritin February 15, 2010 3:00pm 298 NG/ML N 18-464 Free Thyroxine March 31, 2011 5:15am 1.31 NG/DL N 0.78-2.19 Globulin December 23, 2014 9:55am 3.2 G/DL N 2.4-3.6 COMMENT SCU PREOP WILL CALL Glomerular Filtration Rate Calc December 23, 2014 9:55am 57 - COMMENT SCU PREOP WILL CALL Glucometer August 20, 2013 10:24am 151 mg/dL H 75-110 Glucose Level December 23, 2014 9:55am 100 MG/DL N 75-110 COMMENT SCU PREOP WILL CALL HDL Cholesterol Direct April 09, 2012 11:53am 51 MG/DL N 40-60 Hematocrit December 23, 2014 9:55am 34.2 % L 41-53 COMMENT SCU PREOP WILL CALL Hemoglobin December 23, 2014 9:55am 11.0 GM/DL L 13.5-17.5 COMMENT SCU PREOP WILL CALL Hepatitis A IgM Antibody February 15, 2010 3:00pm Negative - Hepatitis B Core IgM Antibody February 15, 2010 3:00pm Negative - Hepatitis B Surface Antigen February 15, 2010 3:00pm Negative - Hepatitis C Antibody February 15, 2010 3:00pm Negative - Icterus Index December 23, 2014 9:55am < 2 0-7 COMMENT SCU PREOP WILL CALL Immature Granulocyte # (Auto) December 23, 2014 9:55am 0.02 T/MM3 N 0.00- 0.03 COMMENT SCU PREOP WILL CALL Immature Granulocyte % (Auto) December 23, 2014 9:55am 0.3 % N 0.0-0.5 COMMENT SCU PREOP WILL CALL Influenza Type A Antigen July 04, 2014 [...] 09, 2012 5:18pm LAB TEST FORM REQUEST [id number] - Lipase February 15, 2010 3:00pm 65 U/L N 23-300 Lymphocytes # (Auto) December 23, 2014 9:55am 2.1 T/MM3 N 1-4.8 COMMENT SCU PREOP WILL CALL Lymphocytes # (Manual) July 05, 2014 5:12am 0.9 T/MM3 L 1-4.8 Lymphocytes % (Manual) July 05, 2014 5:12am 6.0 % L 23-45 Lymphocytes (%) (Auto) December 23, 2014 9:55am 33.9 % N 23-45 COMMENT SCU PREOP WILL CALL Magnesium Level July 05, 2014 5:12am 1.8 MG/DL N 1.6-2.3 Mean Corpuscular Hemoglobin December 23, 2014 9:55am 27.7 UUG N 26-34 COMMENT SCU PREOP WILL CALL Mean Corpuscular Hemoglobin Concent December 23, 2014 9:55am 32.2 GM/DL N 31-37 COMMENT SCU PREOP WILL CALL Mean Corpuscular Volume December 23, 2014 9:55am 86.1 UM3 N 80-100 COMMENT SCU PREOP WILL CALL Mean Platelet Volume December 23, 2014 9:55am 10.5 UM3 N 9.4-12.4 COMMENT SCU PREOP WILL CALL Monocytes # (Auto) December 23, 2014 9:55am 0.6 T/MM3 N 0-0.8 COMMENT SCU PREOP WILL CALL Monocytes # (Manual) July 05, 2014 5:12am 1.4 T/MM3 H 0-0.8 Monocytes % (Manual) July 05, 2014 5:12am 9.0 % N 0-9.0 Monocytes (%) (Auto) December 23, 2014 9:55am 10.3 % H 0-9.0 COMMENT SCU PREOP WILL CALL FG-Nvb-Q-Type Natriuretic Peptide July 07, 2014 5:31am 1590 PG/ML H 0 -175 Rule in cut points: <50 years old=450; 50-75 years old=900; >75 years old=1800; When utilizing ProBNP rule-in cut points, adjustment for impaired renal function is typically not required. Neutrophils # (Auto) December 23, 2014 9:55am 3.2 T/MM3 N 1.8-7.7 COMMENT SCU PREOP WILL CALL Neutrophils # (Manual) July 05, 2014 5:12am 13.3 T/MM3 H 1.8-7.7 Neutrophils % (Manual) July 05, 2014 5:12am 85.0 % H 33-66 Neutrophils (%) (Auto) December 23, 2014 9:55am 52.0 % N 33-66 COMMENT SCU PREOP WILL CALL Platelet Count December 23, 2014 9:55am 185 T/MM3 N 130-400 COMMENT SCU PREOP WILL CALL Potassium Level December 23, 2014 9:55am 3.9 MEQ/L N 3.6-5 COMMENT SCU PREOP WILL CALL Prealbumin May 09, 2013 4:11am 19.0 MG/DL [...] 3.50 FOR IMPLANTED VALVE RDW Standard Deviation December 23, 2014 9:55am 43.0 FL N 36.9-50.2 COMMENT SCU PREOP WILL CALL Red Blood Count December 23, 2014 9:55am 3.97 M/MM3 L 4.50-5.90 COMMENT SCU PREOP WILL CALL Sodium Level December 23, 2014 9:55am 142 MEQ/L N 134-144 COMMENT SCU PREOP WILL CALL Tests Not Done April 10, 2009 7:00pm Not done - Has specimen been collected/obtained? Y Thyroid Stimulating Hormone (TSH) May 09, 2013 4:11am 0.56 MIU/L N 0.47-4.68 COMMENT blood in lab Total Bilirubin December 23, 2014 9:55am 0.40 MG/DL N 0.20-1.30 COMMENT SCU PREOP WILL CALL Total Creatine Kinase April 09, 2012 11:53am 59 U/L N 55-170 Total Protein December 23, 2014 9:55am 6.7 G/DL N 6.3-8.2 COMMENT SCU PREOP WILL CALL Triglycerides Level April 09, 2012 11:53am 60 MG/DL N 40-160 Troponin I July 04, 2014 10:52am 0.019 ng/ml N 0-0.12 Turbidity December 23, 2014 9:55am < 20 0-20 COMMENT SCU PREOP WILL CALL Unconjugated Bilirubin March 31, 2011 5:15am 0.40 [...] Has specimen been collected/obtained? Y Urine Specific [place] July 04, 2014 11:00am 1.020 - Has [...] 455 PG/ML N 239-931 White Blood Count December 23, 2014 9:55am 6.2 T/MM3 N 4.5-11.0 COMMENT SCU PREOP WILL CALL Blood Culture Blood July 04, 2014 10:52am NO GROWTH AFTER 5 DAYS Procedures Procedure Status Date Provider(s) MUSC TEST DONE W/N TEST COMP completed 10/20/14 NRV CNDJ TST 5-6 STUDIES completed 10/20/14 Carpal tunnel release completed 12/23/14 LOUIS CHOUDHARY MD Encounters Encounter Location Date/Time Registered Clinic [facility] 10/20/14 10:50am
[2017-01-04] MEDS ORDERED: IRON PO (16:34)
--- OUTSIDE RECORDS SUMMARY | 2017-01-04 16:39 | XMS REPORT | Continuity of Care Document ---
Author Author Werner [facility] LIVE Organization [facility] LIVE Address Unknown Phone Unavailable Support Name Relationship Address Phone LOUIS CHOUDHARY MD Caregiver [address] [place] [phone] ALLISON MURDOCK MD Caregiver [address] [place] [phone] SOTERO BROWN Next Of Kin [address] [place] [address] Insurance Providers Payer Name Policy Number Subscriber Name Relationship Medicare [id number] Meliton Brown 18 Self Care Rr Medicare Supplement [id number] Meliton Brown Self Advance Directives Directive Response [...] F (96.8 - 99.1) Temperature (Calculated Celsius) 36.31673 degrees C (36.0 - 37.3) Temperature Source [...] 09, 2012 5:18pm LAB TEST FORM REQUEST [id number] - Lipase February 15, 2010 3:00pm 65 [...] H 0-9.0 COMMENT SCU PREOP WILL CALL WC-Xbw-H-Type Natriuretic Peptide July 07, 2014 5:31am 1590 [...] Has specimen been collected/obtained? Y Urine Specific [place] July 04, 2014 11:00am 1.020 - Has [...] MD Encounters Encounter Location Date/Time Registered Clinic [facility] 10/20/14 10:50am
--- OUTSIDE RECORDS SUMMARY | 2017-01-04 16:39 | XMS REPORT | Continuity of Care Document ---
Author Author [facility] Organization [facility] Address Unknown Phone Unavailable Support Name Relationship Address Phone HAILYROGERIO YI Caregiver [address] [place] [address] CATALINO CASTELLANOS MD Caregiver [address] [place] [phone] ALLISON MCCORD MD Caregiver [address] [place] [phone] TWIN LONDON MD Caregiver [address] [place] [phone] SOTERO BROWN Next Of Kin [address] [place] [address] Insurance Providers Payer Name Policy Number Subscriber Name Relationship Medicare [id number] Meliton Brown Self Care Rr Medicare Supplement [id number] Meliton Brown Self Advance Directives Directive Response [...] FULL GLASS OF WATER. 07/04/14 Active Saw [place] Fruit TWICE A DAY 07/04/14 Active Amoxicillin/Potassium [...] F (96.8 - 99.1) Temperature (Calculated Celsius) 35.79718 degrees C (36.0 - 37.3) Temperature Source [...] 09, 2012 5:18pm LAB TEST FORM REQUEST [id number] - Lipase February 15, 2010 3:00pm 67 [...] 08, 2014 5:08am 12.5 % H 0-9.0 FE-Adr-Y-Type Natriuretic Peptide July 07, 2014 5:31am 1590 [...] Has specimen been collected/obtained? Y Urine Specific [place] July 04, 2014 11:00am 1.020 - Has [...] 4 DAYS Name: MELITON BROWN Unit #: [id number] : 1925 Sex: M Loc / Svc: MED DOS: 07/04/14 Signed Report #: [id number] DIAGNOSTIC IMAGING REPORT TYPE OF EXAM: US [...] 06/01/14 Encounters Encounter Location Date/Time Discharged Inpatient [facility] 07/04/14 12:49pm Departed Emergency Room [facility] 06/01/14 10:53pm Recent Diagnosis Acute febrile illness Sepsis History of bacteremia History of dental abscess Poor dentition Dehydration Encephalopathy in sepsis Afib Fever Leucocytosis Dehydration Cellulitis
--- OUTSIDE RECORDS SUMMARY | 2017-01-04 16:39 | XMS REPORT | Continuity of Care Document ---
Author Author [facility] Organization [facility] Address Unknown Phone Unavailable Support Name Relationship Address Phone BRIAN BELCHER MD Caregiver [facility] [address] [place] [address] Unavailable ALLISON MURDOCK MD Caregiver [address] [place] [address] [place] [phone] SOTERO BROWN Next Of Kin [address] [place] [address] Insurance Providers Payer Name Policy Number Subscriber Name Relationship Medicare [id number] Meliton Brown 20 Self Care Rr Medicare Supplement [id number] Meliton Brown 20 Self Problems Medical Problems [...] F (96.8 - 99.1) Temperature (Calculated Celsius) 36.48455 degrees C (36.0 - 37.3) Pulse Rate [...] Has specimen been collected/obtained? Y Urine Specific [place] August 20, 2013 11:15am 1.025 - Has [...] 09, 2012 5:18pm LAB TEST FORM REQUEST [id number] - HDL Cholesterol Direct April 09, 2012 11:53am 51 MG/DL N 40-60 Glomerular Filtration Rate Calc August 20, 2013 9:45am 57 - Immature Granulocyte # (Auto) August 20, 2013 9:45am 0.03 T/MM3 N 0.00 -0.03 Immature Granulocyte % (Auto) August 20, 2013 9:45am 0.3 % N 0.0-0.5 Venous Blood Lactate May 09, 2013 4:11am 1.7 MMOL/L N 0.6-2.2 SW-Sti-V-Type Natriuretic Peptide July 18, 2013 12:13pm 244 [...] Encounters Encounter Location Date/Time Departed Emergency Room [facility] 06/01/14 10:53pm Recent Diagnosis
[2017-01-04] MEDS ORDERED: HC A10FO5 RECTALLY (17:12)
--- NOTE | 2017-01-04 17:13 | ERPDOC ---
Departure Disposition Decision Date: Jan 04, 2017 Disposition Decision Time: 17:09 Disposition: 01 DISCHARGED HOME, SELF-CARE Impression Impression Impression: Primary Impression: Acute hemorrhoid Additional Impression: Bleeding hemorrhoid Severity: Mild Condition: Improved Seen By: Physician only Referrals: ALLISON MURDOCK MD (Family) 2 Days Patient Instructions: Hemorrhoids (ED) Problems/Meds/Labs Reviewed?: Yes Medications reviewed and manag: Yes Follow up care ordered?: Yes Mental Status: Alert, Oriented Scripts Hydrocortisone/Pramoxine (Proctofoam-Hc Foam) 10 Gm Foam 1 APPLICATOR RECTALLY BID for 7 Days, #10 GM 0 Refills Prov: HERMAN DIEHL DO 01/04/17 HPI - General Medical General Chief Complaint: GI Bleed Stated Complaint: RECTAL BLEEDING Time Seen by Provider: 16:23 Source: patient, family Exam Limitations: no limitations HPI - General Medical Initial Comments 89-year-old male presents the emergency department with a chief complaint of noting blood on his toilet tissue following a hard bowel movement. Patient has a history of chronic constipation. Patient noted a small lump in his rectum at the time of his bowel movement with wiping. Patient denies any pain or discomfort currently. The bowel movement with which he noted the blood on the toilet tissue was 24 hours ago. Patient has not had a bowel movement since. Patient does note that he takes Pradaxa. Patient tried to see his primary care physician Dr. Murdock prior to arrival to the emergency department but was not able to get an appointment with him as it is Saturday. Patient denies any symptoms currently. No other complaints or associated symptoms. He was at home when his bowel movement occurred. Occurred At: home Onset: other (1 episode resolved.) Allergies: Coded Allergies: hydrocodone (Unverified Adverse Reaction, Unknown, DIZZINESS, NAUSEA, ) PER H&P Past History Past Medical History Metabolic: hypercholesterolemia, hypertension ENMT: dental problems Cardiac: A-fib, PSVT Male: BPH, renal insufficiency Musculoskeletal: osteoarthritis Psychological: anxiety Surgical History General: gallbladder, hernia, other Family History Family PMH: FOUND: CAD, CVA, diabetes Vaccines Hx Influenza Vaccination: Yes (JUL 2015) Hx Pneumococcal Vaccination: Yes (JUL 2015) Hx Tetanus Diptheria: Yes (2010 OR 2011) Social History Smoking Status: Never smoker Substance Use Type: does not use Alcohol Intake: none Marital Status: Sexuality: female partner Household Members: spouse, children Review of Systems Constitutional Constitutional: DENIES: chills, fever Eyes General: DENIES: erythema, exudate Lids/Accessories: DENIES: erythema, swelling Vision: DENIES: acuity, blurring ENMT Ears: DENIES: drainage, erythema Hearing: DENIES: hearing loss Balance: DENIES: ataxia, falling to one side Sinuses: DENIES: congestion, pain Nose: DENIES: nosebleeds, pain Mouth/Throat: DENIES: painful swallowing, sore throat Teeth: DENIES: pain Jaw: DENIES: pain Cardiovascular Cardiac: DENIES: chest pain, dyspnea on exertion Rhythm/Rate: DENIES: irregular beat, palpitations Vascular: DENIES: pedal edema, unilateral swelling Pulmonary Respiratory: DENIES: cough, dyspnea, pleuritic chest pain, sputum GI Upper Abdomen: DENIES: nausea, pain, vomiting Lower Abdomen: constipation, other (noted blood on toilet tissue. Small amount.), DENIES: diarrhea, pain General: DENIES: dysuria, frequency Musculoskeletal General: DENIES: joint pain, tenderness Integumentary Skin: DENIES: itching, rash Neurological General: DENIES: headache, numbness, weakness Psychiatric Psychiatric: DENIES: emotional instability, suicidal ideation/attempt Endocrine Endocrine: DENIES: polydipsia, polyphagia Hematologic/Lymphatic Hematologic/Lymphatic: DENIES: frequent nosebleeds, lymphadenopathy Allergic/Immunological Allergic/Immunoligical: DENIES: allergic reactions, hives Physical Exam General General Nourishment: well nourished, well developed, appears stated age, no acute distress, adult General Body Habitus: well groomed Vitals and Pain First Documented Vital Signs Date Time Temp Pulse Resp B/P Pulse Ox O2 Delivery O2 Flow Rate FiO2 01/04/17 16:15 98.8 69 16 167/79 97 Room Air Weight: Kilograms: 71.600 Height (feet): 5 Height (inches): 4.00 Triage Pain Scale: RN VS reviewed by Provider: Yes Normal Exams: Head: Normocephalic w/o trauma Eyes: Pupils are PERRLA w/ EOMI, No scleral icterus, irritation, or foreign bodies noted ENMT: No facial trauma, nasal exudates, pharyngeal erythema, or exudates are noted Dental: No fractured, loose, or missing teeth noted Neck: Full range of motion, without adenopathy, JVD, bruits or thyromegaly Chest/Resp: Clear all [place], with good airflow, and symmetry bilaterally CV: Regular rate and rhythm, without murmur or gallop, Pulses 2+ all extremities, capillary refill, <2 seconds all ext., no pedal edema noted Abdomen: Bowel sounds positive, soft, non-tender, non-distended, no hepatosplenomegaly, masses or bruits noted Lymphatic: No lymphadenopathy, or lymphedema noted Musculoskeletal: No tenderness, or deformity noted, good range of motion, all extremities Integumentary: No rashes, hives, or bruising noted, hair and nails, without abnormality Neurologic: Patient is alert, and oriented, cranial nerves, motor/sensory/ cerebellar, exams w/o gross deficits, to observation Psychiatric: Patient exhibits, appropriate attention, emotion and affect Abdomen (brief) Comments Rectal exam - small external hemorrhoid at approximately 03:00 position with scant oozing of blood noted. non thrombosed. Differential Diagnoses Considering: Other (hemorrhoid/rectal bleeding/constipation/GI Bleed) Progress Progress Progress Labs are offered to the patient for thoroughness of evaluation even though a bleeding hemorrhoid was noted. Patient and family declined laboratory evaluation. Patient is discussed with his primary care physician Dr. Allison Murdock who obtains close follow-up appointment for the patient. Dr. Murdock is in agreement with the current plan of management. Patient is discharged home in improved condition. He is to follow up as instructed. He is to return to the emergency Department if his condition worsens or changes in any manner. Patient is in agreement with the current plan of management. Strict return precautions are provided. Prescription for Proctofoam HC is provided. Patient and family verbalized agreement and understanding of the recommendations. HERMAN DIEHL DO Jan 04, 2017 17:12
[2017-01-04 17:20] VITALS: BP 145/69; PULSE 65; RESP 16; TEMP 98.8; O2SAT 96
== END 2017-01-04 17:20 | disposition home or self-care (01) ==
LOC: ED 16:13
DX: K64.4 Residual hemorrhoidal skin tags (principal)